=== PATIENT | female | born 1945 | race Caucasian/White ===

== ENCOUNTER 2016-09-19 08:25 | Outpatient (CLI) | payer MEDICARE ==
[~2016-09-19 08:25] MED LIST: IBU-8800 MG PO; LORTAB 5/500 501 TAB PO
== END 2016-09-19 15:13 ==
LOC: ACC 08:25
DX: Z86.73 Personal history of transient ischemic attack (TIA), and cerebral infarction without residual deficits (principal); Z79.01 Long term (current) use of anticoagulants; Z51.81 Encounter for therapeutic drug level monitoring
CPT/HCPCS: G0463

== ENCOUNTER 2016-10-31 07:41 | Outpatient (CLI) | payer MEDICARE | END 2016-10-31 16:00 | LOC: ACC 07:41 | DX: Z86.73 Personal history of transient ischemic attack (TIA), and cerebral infarction without residual deficits (principal); Z79.01 Long term (current) use of anticoagulants; Z51.81 Encounter for therapeutic drug level monitoring | CPT/HCPCS: G0463 ==

== ENCOUNTER → 2016-12-15 | Outpatient (CLI) | payer MEDICARE ==
[2016-12-15 09:30] LABS: HEMOGLOBIN 13.2 g/dL (12.2-16.2); LYMPH # 0.8 K/mm3 (0.7-4.5); LYMPH % 11.3 % (10-50.0)
[2016-12-15 10:02] LABS: BUN 17 mg/dL (7-18); FREE THYROXIN INDEX 7.2 ug/dl (5.93-13.13); GFR (ESTIMATED) 55 ML/MIN (59-)
== END ==
LOC: LAB 08:53
PROVIDERS: Internal Medicine Rheumatology
DX: M05.861 Other rheumatoid arthritis with rheumatoid factor of right knee (principal); E03.9 Hypothyroidism, unspecified; M81.0 Age-related osteoporosis without current pathological fracture; I61.9 Nontraumatic intracerebral hemorrhage, unspecified; Z79.01 Long term (current) use of anticoagulants; Z51.81 Encounter for therapeutic drug level monitoring; Z86.69 Personal history of other diseases of the nervous system and sense organs

== ENCOUNTER 2017-01-16 08:33 | Outpatient (CLI) | payer MEDICARE | END 2017-01-16 16:04 | LOC: ACC 08:33 | DX: Z86.73 Personal history of transient ischemic attack (TIA), and cerebral infarction without residual deficits (principal); Z79.01 Long term (current) use of anticoagulants; Z51.81 Encounter for therapeutic drug level monitoring | CPT/HCPCS: G0463 ==